=== PATIENT | female | born 1990 | race Caucasian/White ===

== ENCOUNTER 2018-02-06 16:52 | Emergency (ER) | payer OTHER ==
[2018-02-06 17:07] VITALS: BP 118/78
--- NOTE | 2018-02-06 17:14 | ED Physician Documentation ---
PD HPI UPPER EXT INJURY - Stated complaint Stated Complaint: R ARM INJ - Chief complaint Chief Complaint: Ext Problem - History obtained from History obtained from: Patient - History of Present Illness Location: Right, Forearm Type of injury: Blunt / blow (hitting her dog) Timing - onset: Today (2 hrs ago) Timing - details: Abrupt onset Similar symptoms before: Has not had sx before Review of Systems Constitutional: reports: Reviewed and negative Throat: reports: Reviewed and negative Cardiac: reports: Reviewed and negative PD PAST MEDICAL HISTORY - Present Medications Home Medications: Ambulatory Orders Medication Instructions Recorded Confirmed No Known Home Medications [No 02/06/18 02/06/18 Known Home Medications] - Allergies Allergies/Adverse Reactions: Allergies Allergy/AdvReac Type Severity Reaction Status Date / Time No Known Drug Allergies Allergy Verified 02/06/18 17:00 PD ED PE NORMAL - Vitals Vital signs reviewed: Yes - General General: Alert and oriented X 3, No acute distress - Extremities Extremities: Other (TTP Mid R FA, no defrmity. No elbow or wrist TTP.) - Neuro Neuro: Alert and oriented X 3, Normal speech Results - Vitals Vitals: Vital Signs - 24 hr 02/06/18 16:57 Temperature 36.5 C Heart Rate 93 Respiratory 20 Rate Blood Pressure 118/78 O2 Saturation 100 Oxygen O2 Source Room air Procedures - Splint (location) R arm Splint applied by: Tech Type of splint: Fiberglass, Long arm, Sugar tong Other: Patient tolerated well, No complications, Neurovascular intact, Sling provided PD MEDICAL DECISION MAKING - ED course ED course: She declined prescription pain medication. - Sepsis Event Vital Signs: Vital Signs - 24 hr 02/06/18 16:57 Temperature 36.5 C Heart Rate 93 Respiratory 20 Rate Blood Pressure 118/78 O2 Saturation 100 Oxygen O2 Source Room air Departure - Departure Disposition: 01 Home, Self Care Clinical Impression: Fracture of right ulna Qualifiers: Encounter type: initial encounter Ulna location: shaft Fracture type: closed Fracture morphology: transverse Fracture alignment: nondisplaced Qualified Code( s): S52.224A - Nondisplaced transverse fracture of shaft of right ulna, initial encounter for closed fracture Condition: Good Record reviewed to determine appropriate education?: Yes Instructions: ED Fx Upper Ext Comments: Follow-up with [facility], make an appointment tomorrow and take the copy of the x-rays on CD with you. Keep the splint on and dry. You can take Tylenol, 650 mg every 6 hours as needed for pain.
--- NOTE | 2018-02-06 17:32 | XRAY Report ---
Procedure Date: 02/06/2018 Accession Number: [id number] / [id number] Procedure: XR - Forearm RT CPT Code: FULL RESULT: EXAM: RIGHT FOREARM RADIOGRAPHY EXAM DATE: 02/06/2018 05:25 PM. CLINICAL HISTORY: Arm pain COMPARISON: None. TECHNIQUE: 2 views. FINDINGS: Bones: There is minimally displaced fracture through distal third of the right ulna. No other fractures are seen. Joints: No evidence of dislocation. Soft Tissues: No unexpected soft tissue findings. IMPRESSION: Minimally displaced fracture through the distal third of the right ulna. No other fractures are seen. No evidence of dislocation. RADIA
== END 2018-02-06 17:53 | disposition home or self-care (01) ==
LOC: ED 16:52
DX: S52.601A Unspecified fracture of lower end of right ulna, initial encounter for closed fracture (principal); Y93.89 Activity, other specified
CPT/HCPCS: 29105; 99283

== ENCOUNTER 2019-03-26 11:43 | Day surgery (SDC) | payer OTHER ==
[2019-03-26 12:03] LABS: HCG UR QUAL NEGATIVE
[2019-03-26] MEDS ORDERED: LACTATED RINGERS 1,000 ML IV ONE (12:05)
--- NOTE | 2019-03-26 14:24 | ANESTHESIA ---
Pre-Anesthesia VS, & Labs - Diagnosis IUD threads lost - Procedure IUD removal Vital Signs: Temp Pulse Resp BP Pulse Ox 37 C 84 18 123/94 H 96 03/26/19 11:52 03/26/19 11:52 03/26/19 11:52 03/26/19 11:52 03/26/19 11:52 Height 5 ft 2 in Weight (kg) 63 kg Body Mass Index 21.7 - NPO >8 hours - Is Patient ?: No - Lab Results Lab results reviewed: Yes Home Medications and Allergies No Known Home Medications 02/06/18 Allergies/Adverse Reactions: Allergies Allergy/AdvReac Type Severity Reaction Status Date / Time No Known Drug Allergies Allergy Verified 02/06/18 17:00 Anes History & Medical History - Anesthetic History Anesthesia Complications: reports: No previous complications Family history of Anesthesia Complications: Denies Family history of Malignant Hyperthermia: Denies - Medical History Cardiovascular: reports: None Pulmonary: reports: None Gastrointestinal: reports: None Urinary: reports: None Musculoskeletal: reports: None Endocrine/Autoimmune: reports: None Skin: reports: None Smoking Status: Never smoker - Surgical History Gynecologic: Dilation and currettage Exam General: Alert, Oriented x3, Cooperative Dental: WNL Mouth Openin Fingerbreadth Neck Mobility: Normal Mallampati classification: II Thyromental Distance: 4-6 cm Respiratory: Lungs clear, Normal breath sounds Cardiovascular: Regular rate Neurological: Normal speech Mental/Cognitive Status: Alert/Oriented X3, Normal for patient Cognitive Status: Within normal limits Plan Anesthesia Type: MAC Consent for Procedure(s) Verified and Reviewed: Yes Code Status: Attempt Resuscitation ASA classification: 1-Healthy patient Is this case an emergency?: No
[2019-03-26] MEDS ORDERED: PROPOFOL 200 MG/20 ML VIAL IVP ONE (14:44)
[2019-03-26] MEDS ORDERED: KETAMINE 500 MG/10 ML VIAL IVP ONE (14:44)
[2019-03-26] MEDS ORDERED: MIDAZOLAM 2 MG/2 ML VIAL IVP ONE (14:44)
--- NOTE | 2019-03-26 15:09 | OPERATIVE REPORT ---
Operative Report - General Planned Procedure: Removal of Mirena IUD Pre-Op Diagnosis: Desire for removal of Mirena Procedure Performed: Same as above Post Op Diagnosis: Same as above - Procedure Note Primary Surgeon: Keira Anesthesia Provider: Arash Anesthesia Technique: MAC Pathology: None IV Fluids (mL): 300 Estimated Blood Loss (mL): 0 Findings: IUD strings seen - Other Other Information/Narrative: The patient was taken to the operating room and given monitored anesthesia care. She was placed in low lithotomy stirrups and a timeout was performed. A speculum was placed in her vagina. The IUD strings which had previously not been visible were protruding approximately 1/2 cm from the cervix, were grasped and the IUD was removed without difficulty. The patient was then awakened and taken to the recovery room in stable condition.
[2019-03-26 15:19] VITALS: BP 120/84
== END 2019-03-26 11:44 | disposition home or self-care (01) ==
LOC: SDS 11:43
PROVIDERS: ATTEND Obstetrics & Gynecology
PROC: 0UPD7HZ Removal of Contraceptive Device from Uterus and Cervix, Via Natural or Artificial Opening (ICD-10-PCS; principal; 2019-03-26 13:00)
DX: Z30.432 Encounter for removal of intrauterine contraceptive device (principal); T83.31XA Breakdown (mechanical) of intrauterine contraceptive device, initial encounter
CPT/HCPCS: 58301; 81025; J7120